=== PATIENT | male | born 1955 | race Caucasian/White ===

== ENCOUNTER 2018-12-23 08:57 | Day surgery (SDC) | payer BC ==
--- NOTE | 2018-12-22 15:06 | RAD REPORT ---
EXAM DESCRIPTION: RAD - Chest Pa And Lat (2 Views) - 12/22/2018 3:00 pm CLINICAL HISTORY: preop Chest pain. COMPARISON: No comparisons FINDINGS: The lungs are clear. The heart is mildly prominent in size. No displaced fractures. IMPRESSION: No acute or concerning finding suspected.
[2018-12-22 15:13] LABS: Absolute Lymphocytes (CBC) 2.3 K/uL (0.7-4.9); Basophils % 0.3 % (0-1.3); Hematocrit 56.4 % (39.6-49.0); Lymphocytes % 16.6 % (15.3-44.8); MPV 8.9 fL (7.6-11.3); RBC Red Blood Cell Count 6.59 M/uL (4.33-5.43)
[2018-12-22 15:28] LABS: Potassium 4.8 mmol/L (3.5-5.1)
[~2018-12-23 08:57] MED LIST: BUPIVACAINE 0.5% PF 10 ML VIAL ONE
--- OUTSIDE RECORDS SUMMARY | 2018-12-23 09:05 | XMS REPORT | Summary of Care ---
:1955 Author Organization [facility] - Health Address [address] [place] [address] Care Team Providers Name Role Phone Doni Potts MD Primary Care Provider Encounter Details Date Type Department Care Team Description 12/18/2018 Orders Only [facility] Doctor Unassigned, No 301 [facility] [place] [address] [address] [place] [address] Allergies No Known Allergiesdocumented as of this encounter (statuses as of 12/18/2018) Medications Medication Sig Dispensed Refills Start Date End Date Status aspirin (ASPIRIN LOW Take 81 mg by 0 Active DOSE) 81 mg EC mouth daily. tabletIndications: Type 2 diabetes mellitus without complication, Essential hypertension Amlodipine-Olmesartan Take 1 tablet by 90 tablet 4 11/10/2017 Active (LORENA) 10-40 mg per mouth daily. tabletIndications: Essential hypertension metformin ER 500 mg 24 TAKE 2 TABLETS BY 360 tablet 4 06/02/2018 Active hr tabletIndications: MOUTH TWICE A DAY Type 2 diabetes mellitus without complication, without long-term current use of insulin JANUVIA 100 mg TAKE 1 TABLET BY 90 tablet 4 11/19/2018 Active tabletIndications: MOUTH EVERY DAY Type 2 diabetes IN THE MORNING mellitus without complication, without long-term current use of insulin ATENOLOL 50 mg TAKE 1 TABLET BY 90 tablet 4 11/19/2018 Active tabletIndications: MOUTH EVERY DAY Essential hypertension IN THE MORNING FARXIGA 5 mg TAKE 1 TABLET BY 90 tablet 3 11/25/2018 Active tabletIndications: MOUTH EVERY DAY Type 2 diabetes mellitus without complication, without long-term current use of insulin documented as of this encounter (statuses as of 12/18/2018) Active Problems Problem Noted Date Type 2 diabetes mellitus without complication 02/06/2015 Essential hypertension 02/06/2015 documented as of this encounter (statuses as of 12/18/2018) Immunizations Name Administration Dates Next Due Influenza Virus Vaccine Quad ID 18-64 YRS 05/22/2015 Influenza Virus Vaccine Quad IM 3+ YRS 04/15/2016 documented as of this encounter Social History Tobacco Use Types Packs/Day Years Used Date Former Smoker Quit: 02/06/2011 Smokeless Tobacco: Never Used Alcohol Use Drinks/Week oz/Week Comments No 0 Standard drinks or equivalent 0.0 Sex Assigned at Date Recorded Not on file Job Start Date Occupation Industry Not on file Not on file Not on file Travel History Travel Start Travel End No recent travel history available. documented as of this encounter Last Filed Vital Signs Not on filedocumented in this encounter Plan of Treatment Date Type Specialty Care Team Description 12/18/2018 Office Visit Family Medicine Doni Potts MD [address] [place] [address] [place] [address] Health Maintenance Due Date Last Done Comments HEPATITIS C (HCV) SCREEN 1955 PNEUMOCOCCAL 0-64 YEARS COMBINED 09/26/1963 SERIES (1 of 1 - PPSV23) EYE EXAM 09/26/1967 DTaP,Tdap,and Td Vaccines (1 - 1976 Tdap) COLONOSCOPY 09/26/2007 Zoster Recombinant Vaccine 09/26/2007 (SHINGRIX) (1 of 2) LUNG CANCER SCREEN: Recommended 2012 for age 55-80 with 30 + pack year history INFLUENZA VACCINE (#1) 2018 04/15/2016 HgA1C 05/02/2019 10/30/2018, 11/10/2017, 11/12/2016, Additional history exists CREATININE (SERUM) 10/31/2019 10/30/2018, 11/10/2017, 11/12/2016, Additional history exists FOOT EXAM 10/31/2019 10/30/2018, 10/30/2018 LDL-C 10/31/2019 10/30/2018, 11/10/2017, 11/12/2016, Additional history exists URINE MICROALBUMIN 10/31/2019 10/30/2018, 11/10/2017, 11/12/2016, Additional history exists documented as of this encounter Procedures Procedure Name Priority Date/Time Associated Diagnosis Comments ASSIGNMENT OF BENEFITS Routine 12/18/2018 2:07 PM CDT documented in this encounter Results Not on filedocumented in this encounter Insurance Payer Benefit Plan Subscriber ID Effective Dates Phone Address Type / Group BCBS OF [facility] [id number] 2013-North [phone] [address] PPO/POS [place] - OUT OF t 7 [id number] [place] [address] documented as of this encounter
--- OUTSIDE RECORDS SUMMARY | 2018-12-23 09:05 | XMS REPORT | Summary of Care ---
:1955 Author Organization [facility] Address [address] [place] [address] Care Team Providers Name Role Phone Doni Potts MD Primary Care Provider Reason for Visit Reason Comments Refill Request Encounter Details Date Type Department Care Team Description 11/25/2018 Refill [facility] Family Medicine Doni Potts MD Refill Request - [address] [address] [place] [phone] Allergies No Known Allergiesdocumented as of this encounter (statuses as of 11/25/2018) Medications Medication Sig Dispensed Refills Start Date End Date Status aspirin (ASPIRIN Take 81 mg by 0 Active LOW DOSE) 81 mg EC mouth daily. tabletIndications: Type 2 diabetes mellitus without complication, Essential hypertension Amlodipine-Olmesart Take 1 tablet 90 tablet 4 11/10/2017 Active an (LORENA) 10-40 mg by mouth per daily. tabletIndications: Essential hypertension metformin ER 500 mg TAKE 2 360 tablet 4 06/02/2018 Active 24 hr TABLETS BY tabletIndications: MOUTH TWICE A Type 2 diabetes DAY mellitus without complication, without long-term current use of insulin JANUVIA 100 mg TAKE 1 TABLET 90 tablet 4 11/19/2018 Active tabletIndications: BY MOUTH Type 2 diabetes EVERY DAY IN mellitus without THE MORNING complication, without long-term current use of insulin ATENOLOL 50 mg TAKE 1 TABLET 90 tablet 4 11/19/2018 Active tabletIndications: BY MOUTH Essential EVERY DAY IN hypertension THE MORNING FARXIGA 5 mg TAKE 1 TABLET 90 tablet 3 11/25/2018 Active tabletIndications: BY MOUTH Type 2 diabetes EVERY DAY mellitus without complication, without long-term current use of insulin dapagliflozin Take 1 tablet 90 tablet 4 11/10/2017 11/25/2018 Discontinued (FARXIGA) 5 mg by mouth tabletIndications: daily. Type 2 diabetes mellitus without complication, without long-term current use of insulin documented as of this encounter (statuses as of 11/25/2018) Active Problems Problem Noted Date Type 2 diabetes mellitus without complication 02/06/2015 Essential hypertension 02/06/2015 documented as of this encounter (statuses as of 11/25/2018) Immunizations Name Administration Dates Next Due Influenza [...] filedocumented in this encounter Plan of Treatment Health Maintenance Due Date Last Done Comments HEPATITIS C (HCV) SCREEN 1955 PNEUMOCOCCAL 0-64 YEARS COMBINED 09/26/1963 SERIES (1 of 1 - PPSV23) EYE EXAM 09/26/1967 DTaP,Tdap,and Td Vaccines (1 - 1976 Tdap) COLONOSCOPY 09/26/2007 Zoster Recombinant Vaccine 09/26/2007 (SHINGRIX) (1 of 2) LUNG CANCER SCREEN: Recommended 2012 for age 55-80 with 30 + pack year history INFLUENZA VACCINE 12/27/2018 04/15/2016, 05/22/2015 HgA1C 05/02/2019 10/30/2018, 11/10/2017, 11/12/2016, Additional history exists CREATININE (SERUM) 10/31/2019 10/30/2018, 11/10/2017, 11/12/2016, Additional history exists FOOT EXAM 10/31/2019 10/30/2018, 10/30/2018 LDL-C 10/31/2019 10/30/2018, 11/10/2017, 11/12/2016, Additional history exists URINE MICROALBUMIN 10/31/2019 10/30/2018, 11/10/2017, 11/12/2016, Additional history exists documented as of this encounter Results Not on filedocumented in this encounter Visit Diagnoses Diagnosis Type 2 diabetes mellitus without complication, without long-term current use of insulin documented in this encounter Insurance Payer Benefit Plan Subscriber ID Effective Dates Phone Address Type / Group BCBS OF [facility] [id number] 2013-North [phone] [address] PPO/POS [place] - OUT OF t 7 [id number] [place] [address] documented as of this encounter
--- OUTSIDE RECORDS SUMMARY | 2018-12-23 09:05 | XMS REPORT | Summary of Care ---
:1955 Author Organization [facility] - Health Address [address] [place] [address] Care Team Providers Name Role Phone Doni Potts MD Primary Care Provider Encounter Details Date Type Department Care Team Description 11/24/2018 Orders Only [facility] Doctor Unassigned, No 301 [facility] [place] [address] [address] [place] [address] Allergies No Known Allergiesdocumented as of this encounter (statuses as of 11/24/2018) Medications Medication Sig Dispensed Refills Start Date End Date Status aspirin (ASPIRIN LOW Take 81 mg by 0 Active DOSE) 81 mg EC mouth daily. tabletIndications: Type 2 diabetes mellitus without complication, Essential hypertension Amlodipine-Olmesartan Take 1 tablet by 90 tablet 4 11/10/2017 Active (LORENA) 10-40 mg per mouth daily. tabletIndications: Essential hypertension dapagliflozin (FARXIGA) Take 1 tablet by 90 tablet 4 11/10/2017 Active 5 mg tabletIndications: mouth daily. Type 2 diabetes mellitus without complication, without long-term current use of insulin metformin ER 500 mg 24 TAKE 2 TABLETS 360 tablet 4 06/02/2018 Active hr tabletIndications: BY MOUTH TWICE A Type 2 diabetes DAY mellitus without complication, without long-term current use of insulin JANUVIA 100 mg TAKE 1 TABLET BY 90 tablet 4 11/19/2018 Active tabletIndications: Type MOUTH EVERY DAY 2 diabetes mellitus IN THE MORNING without complication, without long-term current use of insulin ATENOLOL 50 mg TAKE 1 TABLET BY 90 tablet 4 11/19/2018 Active tabletIndications: MOUTH EVERY DAY Essential hypertension IN THE MORNING documented as of this encounter (statuses as of 11/24/2018) Active Problems Problem Noted Date Type 2 diabetes mellitus without complication 02/06/2015 Essential hypertension 02/06/2015 documented as of this encounter (statuses as of 11/24/2018) Immunizations Name Administration Dates Next Due Influenza [...] Procedure Name Priority Date/Time Associated Diagnosis Comments EXTERNAL PROVIDER Routine 11/24/2018 12:01 AM CDT RECORDS documented in this encounter Results Not on filedocumented in this encounter Insurance Payer Benefit Plan Subscriber ID Effective Dates Phone Address Type / Group BCBS OF [employer] [place] [id number] 2013-North [phone] [address] PPO/POS [place] - OUT OF t 7 [id number] [place] [address] documented as of this encounter
--- OUTSIDE RECORDS SUMMARY | 2018-12-23 09:05 | XMS REPORT | Summary of Care ---
:[address] [facility] Address [address] [place] [address] Care Team Providers Name Role Phone Doni Potts MD Primary Care Provider Reason for Visit Reason Comments Refill Request Encounter Details Date Type Department Care Team Description 11/19/2018 Refill [facility] Family Medicine Doni Potts MD Refill Request - [address] [address] [place] [phone] Allergies No Known Allergiesdocumented as of this encounter (statuses as of 11/19/2018) Medications Medication Sig Dispensed Refills Start Date End Date Status aspirin (ASPIRIN Take 81 mg by 0 Active LOW DOSE) 81 mg EC mouth daily. tabletIndications: Type 2 diabetes mellitus without complication, Essential hypertension Amlodipine-Olmesart Take 1 tablet 90 tablet 4 11/10/2017 Active an (LORENA) 10-40 mg by mouth per daily. tabletIndications: Essential hypertension dapagliflozin Take 1 tablet 90 tablet 4 11/10/2017 Active (FARXIGA) 5 mg by mouth tabletIndications: daily. Type 2 diabetes mellitus without complication, without long-term current use of insulin metformin ER 500 mg TAKE 2 360 [...] Essential EVERY DAY IN hypertension THE MORNING sitaGLIPtin Take 1 tablet 90 tablet 4 11/10/2017 11/19/2018 Discontinued (JANUVIA) 100 mg by mouth tabletIndications: every Type 2 diabetes morning. mellitus without complication, without long-term current use of insulin atenolol 50 mg Take 1 tablet 90 tablet 4 11/10/2017 11/19/2018 Discontinued tabletIndications: by mouth Essential every hypertension morning. documented as of this encounter (statuses as of 11/19/2018) Active Problems Problem Noted Date Type 2 diabetes mellitus without complication 02/06/2015 Essential hypertension 02/06/2015 documented as of this encounter (statuses as of 11/19/2018) Immunizations Name Administration Dates Next Due Influenza [...] complication, without long-term current use of insulin Essential hypertension Unspecified essential hypertension documented in this encounter Insurance Payer Benefit Plan Subscriber ID Effective Dates Phone Address Type / Group BCBS OF [facility] [id number] 2013-North [phone] [address] PPO/POS [place] - OUT OF t 7 [id number] [place] [address] documented as of this encounter
--- OUTSIDE RECORDS SUMMARY | 2018-12-23 09:06 | XMS REPORT ---
:1955 Author Organization [facility] Address [address] [place] [address] [address] [place] [address] Care Team Providers Name Role Phone Unavailable Unavailable Unavailable Problems This patient has no known problems. Allergies, Adverse Reactions, Alerts This patient has no known allergies or adverse reactions. Medications This patient has no known medications.
--- OUTSIDE RECORDS SUMMARY | 2018-12-23 09:06 | XMS REPORT | Summary of Care ---
:1955 Author Organization [facility] Address [address] [place] [address] Care Team Providers Name Role Phone Doni Potts MD Primary Care Provider Reason for Visit Reason Comments Follow-up Forms Encounter Details Date Type Department Care Team Description 12/18/2018 Office Visit [facility] Family Doni Potts Pre-operative Medicine - Clifton Chiang MD clearance (Primary [facility] [address] [facility] [address]x) [place] [phone] Allergies No Known Allergiesdocumented as of this [...] of this encounter Last Filed Vital Signs Vital Sign Reading Time Taken Comments Blood Pressure 137/79 12/18/2018 2:17 PM CDT Pulse 112 12/18/2018 2:17 PM CDT Temperature 36.4 C (97.5 F) 12/18/2018 2:17 PM CDT Respiratory Rate 16 12/18/2018 2:17 PM CDT Oxygen Saturation - - Inhaled Oxygen Concentration - - Weight 119.7 kg (264 lb) 12/18/2018 2:17 PM CDT Height 185.4 cm (6' 1") 12/18/2018 2:17 PM CDT Body Mass Index 34.83 12/18/2018 2:17 PM CDT documented in this encounter Progress Notes Doni Potts MD - 12/18/2018 2:15 PM CDT CC: patient needs clearance for excision of a large cyst on back Dallin is a 63 year old male Glucose control is good; last level was 120; A1c 7.3% No Known Allergies Current Outpatient Medications Medication Sig Dispense Refill FARXIGA 5 mg tablet TAKE 1 TABLET BY MOUTH EVERY DAY 90 tablet 3 ATENOLOL 50 mg tablet TAKE 1 TABLET BY MOUTH EVERY DAY IN THE MORNING 90 tablet 4 JANUVIA 100 mg tablet TAKE 1 TABLET BY MOUTH EVERY DAY IN THE MORNING 90 tablet 4 metformin ER 500 mg 24 hr tablet TAKE 2 TABLETS BY MOUTH TWICE A DAY 360 tablet 4 Amlodipine-Olmesartan (LORENA) 10-40 mg per tablet Take 1 tablet by mouth daily. 90 tablet 4 aspirin (ASPIRIN LOW DOSE) 81 mg EC tablet Take 81 mg by mouth daily. No current facility-administered medications for this visit. Past Medical History: Diagnosis Date Diabetes mellitus Hypertension Past Surgical History: Procedure Laterality Date FOOT DEBRIDEMENT Right 06/2009 Social History Socioeconomic History Marital status: Spouse name: Not on file Number of children: Not on file Years of education: Not on file Highest education level: Not on file Occupational History Not on file Social Needs Financial resource strain: Not on file Food insecurity: Worry: Not on file Inability: Not on file Transportation needs: Medical: Not on file Non-medical: Not on file Tobacco Use Smoking status: Former Smoker Last attempt to quit: 02/06/2011 Years since quittin.8 Smokeless tobacco: Never Used Substance and Sexual Activity Alcohol use: No Alcohol/week: 0.0 oz Drug use: No Sexual activity: Not on file Lifestyle Physical activity: Days per week: Not on file Minutes per session: Not on file Stress: Not on file Relationships Social connections: Talks on phone: Not on file Gets together: Not on file Attends cheondoism service: Not on file Active member of club or organization: Not on file Attends meetings of clubs or organizations: Not on file Relationship status: Not on file Intimate partner violence: Fear of current or ex partner: Not on file Emotionally abused: Not on file Physically abused: Not on file Forced sexual activity: Not on file Other Topics Concern Not on file 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 He appears well- developed and well-nourished. HENT: Head: Normocephalic and atraumatic. Eyes: Conjunctivae are normal. Neck: Normal range of motion. Neck supple. No JVD present. No tracheal deviation present. No thyromegaly present. Cardiovascular: Normal rate, regular rhythm, normal heart sounds and intact distal pulses. Exam reveals no gallop and no friction rub. No murmur heard. Pulmonary/Chest: Effort normal and breath sounds normal. No respiratory distress. He has no wheezes.He has no rales. He exhibits no tenderness. Abdominal: Soft. Bowel sounds are normal. He exhibits no distension and no mass. There is no tenderness. There is no rebound and no guarding. Musculoskeletal: Normal range of motion. He exhibits no edema or tenderness. Lymphadenopathy: He has no cervical adenopathy. Neurological: He is alert and oriented to person, place, and time. Skin: Skin is warm and dry. Large cyst on right upper back/shoulder EKG: poor R wave progression; no acute changes Diagnosis: 1. Pre-operative clearance EKG-12 LEAD ROUTINE patient is medically cleared for planned surgery; please restart his aspirin after surgery. Follow up: prn Patient Care Team: Doni Potts MD as PCP - General ([facility]-FAMILY MEDICINE) Plan of care, desired health behaviors, goals,& medication discussed with patient. Education resources & self management tools provided and reviewed with AVS. Patient/guardian/family verbalized understanding & agrees to plan of care. Barriers to care: None Ability to manage care: Good documented in this encounter Plan of Treatment Name Type Priority Associated Diagnoses Order Schedule EKG-12 LEAD ROUTINE HEART STATION Routine Pre-operative Ordered: 12/18/2018 clearance Health Maintenance Due Date Last Done Comments [...] filedocumented in this encounter Visit Diagnoses Diagnosis Pre-operative clearance - Primary Preoperative examination, unspecified documented in this encounter Insurance Payer Benefit Plan Subscriber ID Effective Dates Phone Address Type / Group BCBS OF [facility] [id number] 2013-North [phone] [address] PPO/POS [place] - OUT OF t 7 [id number] [place] [address] documented as of this encounter
--- OUTSIDE RECORDS SUMMARY | 2018-12-23 09:06 | XMS REPORT | Summary of Care ---
:1955 Author Organization [facility] Address [address] [place] [address] Care Team Providers Name Role Phone Doni Potts MD Primary Care Provider Reason for Visit Reason Comments Follow-up Forms Encounter Details Date Type Department Care Team Description 12/18/2018 Office Visit [facility] Family Doni Potts Pre-operative Medicine - Clifton Chiang MD clearance (Primary [facility] 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
--- OUTSIDE RECORDS SUMMARY | 2018-12-23 09:06 | XMS REPORT | Summary of Care ---
:1955 Author Organization [facility] Address [address] [place] [address] Care Team Providers Name Role Phone Doni Potts MD Primary Care Provider Encounter Details Date Type Department Care Team Description 12/18/2018 Letter (Out) [facility] Family Doni Potts Medicine - Clifton COLÓN [address] [place] [address] [place] [address] [place] [phone] Allergies No Known Allergiesdocumented as of this [...] Phone Address Type / Group BCBS OF [facility] [id number] 2013-North [phone] [address] PPO/POS [place] - OUT OF t 7 [id number] [place] [address] documented as of this encounter
[2018-12-23] MEDS ORDERED: FENTANYL CITR 100 MCG/2 ML ONE (09:10)
[2018-12-23] MEDS ORDERED: PROPOFOL 200 MG/20 ML VIAL IV ONE (09:10)
[2018-12-23] MEDS ORDERED: MIDAZOLAM HCL 2 MG/2 ML INJ ONE (09:10)
[2018-12-23] MEDS ORDERED: ONDANSETRON 4 MG/2 ML VIAL ONE (09:11)
[2018-12-23] MEDS ORDERED: LIDOCAINE 2% MPF 5 ML VIAL ONE (09:11)
[2018-12-23] MEDS ORDERED: NA CHLORIDE 0.9% 1,000 ML ONE (09:14)
[2018-12-23] MEDS ORDERED: CEFAZOLIN/SWI 1gm 1 GM/10 ML SYR ONE (09:25)
--- NOTE | 2018-12-23 10:19 | P.BOP ---
Preoperative diagnosis: infected back mass with abscess Postoperative diagnosis: same Primary procedure: Incision and drainage of back complex abscess Secondary procedure: Excisional biopsy of infected back mass [id number] Pattern Lease Inspector: Adia Powell) Estimated blood loss: <10cc Specimen: mass amd pus culture Findings: mass and complex abscess Anesthesia: General Complications: None Transferred to: Recovery Room Condition: Good
--- NOTE | 2018-12-23 22:26 | DS ---
Date of Discharge: 12/23/2018 Diagnosis: Infected back mass with abscess. Procedure: Incision and drainage of back complex abscess with excisional biopsy of infected back mas s down to fascia of the muscle. Disposition: Home. Activity: As tolerated. No heavy lifting. Followup: Follow up in my office in 1 week. Call for appointment at [phone]. Patient most likely will need wet-to-dry dressing daily and was requesting home health agency. Medications: We will give the patient Bactrim, Tylenol No. 3, and normal saline. STEFANI/SHONDA Voice ID: [id number] Report ID: [id number]
--- NOTE | 2018-12-23 22:26 | OP ---
Date of Procedure: 12/23/2018 Surgeon: Michael Albert MD [employer] Grade Mathematics Teacher: Adia Bennett. Preoperative Diagnosis: Infected back mass with abscess. Postoperative Diagnosis: Infected back mass with abscess. Procedure: Incision and drainage of complicated back abscess with excisional biopsy of infected back mass about 12 x 9 x 2 cm. Estimated Blood Loss: Less than 10 cc. Specimen: Mass and pus culture. Finding: Mass with a complex abscess deep to it with multiple loculations. Cultures were done. Anesthesia: General plus local. Indications: This is a case of a 63-year-old patient, who comes to us with a cellulitis on the back and abscess with a back mass in the middle of it, it was draining purulent discharge already. Patien t has a history of diabetes. It is getting worse, so he was advised for excision of the mass with dr larson of an abscess with benefits, alternatives, and risks including, but not limited to, infection, bleeding, damage to adjacent structures, anesthesia complication, recurrence, VA, and even . H e also understands this may not relieve any symptoms. He might need more than one surgical intervent ion. He understands also he may require wound care, signed a consent. Description Of Procedure: Patient was brought to the operating room, placed in supine position. Ane sthesia was done without complication. Patient was placed in lateral decubitus position with proper protection. The area of concern was previously marked by me and the patient in the holding room. Th e area was prepped and draped in usual sterile fashion. Time-out was called. Incision was made. Pu s was obtained immediately. We noticed there was a complex large abscess with a mass in the middle, so we proceeded to make a wide excision in that area to remove the whole wall of this mass. Abscess was encountered deep to the mass, so had to be also drained with multiple loculations. Mass was comp letely excised. Cultures were obtained. Hemostasis was obtained. This goes all the way down to mus juan with fascia. The muscle was removed with the mass. Muscle was exposed, but did not seem to be p enetrating the muscle. Patient tolerated the procedure well. The area was packed after hemostasis a nd after local anesthetic. Patient was sent to Recovery in stable condition. STEFANI/SHONDA Voice ID: [id number] Report ID: [id number]
== END 2018-12-23 11:30 | disposition home health service (06) ==
LOC: OR 08:57
PROVIDERS: ATTEND Surgery
PROC: 0JB70ZZ Excision of Back Subcutaneous Tissue and Fascia, Open Approach (ICD-10-PCS; 2018-12-23)
PROC: 0J970ZZ Drainage of Back Subcutaneous Tissue and Fascia, Open Approach (ICD-10-PCS; principal; 2018-12-23 11:00)
DX: R22.2 Localized swelling, mass and lump, trunk (principal); L02.212 Cutaneous abscess of back [any part, except buttock and flank]; E11.9 Type 2 diabetes mellitus without complications; I10 Essential (primary) hypertension; Z79.82 Long term (current) use of aspirin; Z91.048 Other nonmedicinal substance allergy status; Z83.3 Family history of diabetes mellitus; Z82.49 Family history of ischemic heart disease and other diseases of the circulatory system
CPT/HCPCS: 87070; 85025; 80048; 36415; 87205 ×2; 88312; 82962 ×2; 88304; 87075; 71046; 10061; 11406; J2704; J2250; J3010; J0690; J7030; J2405; 88305

== ENCOUNTER 2019-01-31 12:14 | Emergency (ER) | payer BC ==
[2019-01-31] MEDS ORDERED: ONDANSETRON 4 MG/2 ML VIAL ONE (12:39)
[2019-01-31] MEDS ORDERED: ASPIRIN 81 MG CHEWABLE TABLET ONE (12:39)
[2019-01-31] MEDS ORDERED: NITROGLYCERIN 0.4 MG/TAB SL ONE (12:39)
[2019-01-31] MEDS ORDERED: FENTANYL CITR 100 MCG/2 ML ONE (12:39)
[2019-01-31 13:28] LABS: Absolute Lymphocytes (CBC) 1.9 K/uL (0.7-4.9); Basophils % 0.4 % (0-1.3); Hematocrit 53.7 % (39.6-49.0); Lymphocytes % 12.5 % (15.3-44.8); MPV 8.5 fL (7.6-11.3); RBC Red Blood Cell Count 6.32 M/uL (4.33-5.43)
[2019-01-31 13:32] LABS: Protime INR 1.03
[2019-01-31 13:47] LABS: ALT/SGPT 28 U/L (12-78); AST/SGOT 30 U/L (15-37); Albumin 3.4 g/dL (3.4-5.0); Alkaline Phosphatase 125 U/L (45-117); BUN Blood Urea Nitrogen 17 mg/dL (7-18); Bicarbonate 29 mmol/L (21-32); Bilirubin Direct < 0.1 mg/dL (0-0.2); Bilirubin Total 0.6 mg/dL (0.2-1.0); Glucose Level 373 mg/dL (74-106); Magnesium 1.5 mg/dL (1.8-2.4); NT PRO-BNP 3524 pg/mL (<125); Potassium 4.7 mmol/L (3.5-5.1); Protein, Total 7.4 g/dL (6.4-8.2); Sodium Level 133 mmol/L (136-145)
[2019-01-31 13:48] LABS: Troponin (Emerg Dept Use Only) 0.67 ng/mL (0.0-0.045)
--- NOTE | 2019-01-31 14:26 | RAD REPORT ---
EXAM DESCRIPTION: CT - Chest For Pe Angio - 01/31/2019 2:12 pm CLINICAL HISTORY: Chest pain;Dyspnea COMPARISON: Chest Single View dated 01/31/2019 TECHNIQUE: Dynamically enhanced 3 mm thick images of the chest were obtained during administration o f approximately 150mL Isovue 370 IV contrast. Coronal and oblique MIP reconstruction images were gene rated and reviewed. Exam utilizes a protocol to evaluate the pulmonary arterial tree. All CT scans are performed using dose optimization technique as appropriate and may include automated exposure control or mA/KV adjustment according to patient size. FINDINGS: No pulmonary emboli are identified. The aorta as imaged shows no acute or suspicious finding. No pericardial thickening or effusion. No infiltrate or mass in the lung parenchyma. No pleural effusion or pleural thickening. No mediastinal or hilar suspicious masses. No chest wall masses or abnormal axillary lymphadenopathy. Limited upper abdomen imaging shows fatty infiltration of a partially visualized liver. IMPRESSION: No pulmonary emboli identified. No other significant or suspicious findings. Partially imaged liver shows fatty infiltration.
[2019-01-31] MEDS ORDERED: Magnesium Sulfate 2gm IVPB 2 G/50 ML BAG IV ONE (14:31)
[2019-01-31] MEDS ORDERED: ENOXAPARIN 100 MG/ML SYR SQ ONE (14:31)
[2019-01-31] MEDS ORDERED: NITROGLYCERIN/D5W 50 MG/250 ML BTL IV ONE (14:31)
[2019-01-31] MEDS ORDERED: HEPARIN 5000 UNIT/ML 1 ML VIAL ONE (14:43)
[2019-01-31] MEDS ORDERED: TENECTEPLASE 50 MG/10 ML VIAL IV ONE (14:43)
[2019-01-31] MEDS ORDERED: HEPARIN/D5W 25,000 UNIT/500 ML BAG IV ONE (14:44)
[2019-01-31] MEDS ORDERED: CLOPIDOGREL 75 MG TABLET ONE (14:56)
--- NOTE | 2019-01-31 15:33 | EDPHYS ---
Physician Documentation [facility] Name: Dallin Rodriguez Age: 63 yrs Sex: Male : 1955 Arrival Date: 01/31/2019 Time: 12:15 Bed 3 Private MD: ED Physician Jeffrey Truong HPI: 01/31 12:39 This 63 yrs old Male presents to ER via Ambulatory with complaints of Chest jr8 Pain. 12:39 The patient or guardian reports chest pain that is located primarily in the substernal jr8 area. Onset: 3 day(s) ago. The pain radiates to Associated signs and symptoms: Pertinent negatives: abdominal pain, diaphoresis, dizziness, headache, lightheadedness, nausea, near syncope, shortness of breath. The chest pain is described as burning. Duration: The patient or guardian reports a single episode. Modifying factors: The symptoms are alleviated by nothing. the symptoms are aggravated by nothing. Severity of pain: At its worst the pain was moderate in the emergency department the pain is unchanged. The patient has not experienced similar symptoms in the past. Pt reports onset of burning chest pain substernal and radiating to back, left arm, left shoulder. 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 Historical: - Allergies: 12:42 No Known Allergies; aj1 - PMHx: 12:42 Hypertension; Diabetes - NIDDM; wound vac to back after cyst removal; aj1 - Immunization history:: Flu vaccine is not up to date. - Social history:: Smoking status: Patient/guardian denies using tobacco. - Ebola Screening: : Patient denies travel to an Ebola-affected area in the 21 days before illness onset. ROS: 12:39 Constitutional: Negative for fever, chills, and weight loss, Eyes: Negative for injury, jr8 pain, redness, and discharge, ENT: Negative for injury, pain, and discharge, Neck: Negative for injury, pain, and swelling, Abdomen/GI: Negative for abdominal pain, nausea, vomiting, diarrhea, and constipation, Back: Negative for injury and pain, MS/Extremity: Negative for injury and deformity, Neuro: Negative for headache, weakness, numbness, tingling, and seizure. 12:39 Cardiovascular: Positive for chest pain. 12:39 Respiratory: Negative for cough, shortness of breath. Exam: 12:42 Constitutional: This is a well developed, well nourished patient who is awake, alert, jr8 and in no acute distress. Head/Face: Normocephalic, atraumatic. Eyes: Pupils equal round and reactive to light, extra-ocular motions intact. Lids and lashes normal. Conjunctiva and sclera are non-icteric and not injected. Cornea within normal limits. Periorbital areas with no swelling, redness, or edema. ENT: Nares patent. No nasal discharge, no septal abnormalities noted. Tympanic membranes are normal and external auditory canals are clear. Oropharynx with no redness, swelling, or masses, exudates, or evidence of obstruction, uvula midline. Mucous membranes moist. Neck: Trachea midline, no thyromegaly or masses palpated, and no cervical lymphadenopathy. Supple, full range of motion without nuchal rigidity, or vertebral point tenderness. No Meningismus. Chest/axilla: Normal chest wall appearance and motion. Nontender with no deformity. No lesions are appreciated. Cardiovascular: Regular rate and rhythm with a normal S1 and S2. No gallops, murmurs, or rubs. Normal PMI, no JVD. No pulse deficits. Respiratory: Lungs have equal breath sounds bilaterally, clear to auscultation and percussion. No rales, rhonchi or wheezes noted. No increased work of breathing, no retractions or nasal flaring. Abdomen/GI: Soft, non-tender, with normal bowel sounds. No distension or tympany. No guarding or rebound. No evidence of tenderness throughout. MS/ Extremity: Pulses equal, no cyanosis. Neurovascular intact. Full, normal range of motion. Neuro: Awake and alert, GCS 15, oriented to person, place, time, and situation. Cranial nerves II-XII grossly intact. Motor strength 5/5 in all extremities. Sensory grossly intact. Cerebellar exam normal. Normal gait. Vital Signs: 12:18 BP 173 / 129; Pulse 126; Resp 24; Temp 97.8; Pulse Ox 94% on R/A; aj1 12:45 Weight 117.93 kg; Height 6 ft. 1 in. (185.42 cm); ms 12:49 BP 157 / 108; Pulse 119; Pulse Ox 93% on R/A; aa5 12:53 Pulse Ox 87% on R/A; aa5 12:54 BP 146 / 101; Pulse 127; Resp 20 S; Pulse Ox 96% on 3 lpm NC; aa5 12:59 BP 148 / 102; Pulse 123; Resp 18 S; Pulse Ox 93% on 4 lpm NC; aa5 13:25 BP 127 / 93; Pulse 117; Resp 18 S; Pulse Ox 92% on 3 lpm NC; aa5 13:40 BP 135 / 101; Pulse 114; Resp 20 S; Pulse Ox 95% on 3 lpm NC; aa5 14:28 BP 164 / 119; Pulse 119; Resp 20; Pulse Ox 97% on 2 lpm NC; ae4 14:40 BP 152 / 112; Pulse 129; Resp 18 S; Pulse Ox 98% on 3 lpm NC; aa5 14:48 BP 172 / 120; Pulse 124; Resp 18 S; Pulse Ox 95% on 3 lpm NC; aa5 14:54 BP 176 / 129; Pulse 124; Resp 18 S; Pulse Ox 95% on 3 lpm NC; aa5 15:02 BP 168 / 116; Pulse 128; Resp 20 S; Pulse Ox 94% on 3 lpm NC; aa5 15:07 BP 161 / 109; Pulse 128; Resp 18 S; Pulse Ox 94% on 3 lpm NC; aa5 12:45 Body Mass Index 34.30 (117.93 kg, 185.42 cm) ms 12:53 Pt denies SOB at this time. aa5 MDM: 12:23 Patient medically screened. jr8 15:01 HEART Score: History: Highly Suspicious (2), ECG: Non specific repolarization jr8 disturbance / LBTB / PM (1), Age: > 45 and < 65 years (1), Risk Factors: 1 or 2 risk factors (1), [Hypertension] [DM] Troponin: > 1 and < 3 x normal limit (1). The patient was given aspirin in the Emergency Department. Data reviewed: vital signs, nurses notes, lab test result(s), EKG, radiologic studies, CT scan, plain films. Data interpreted: Pulse oximetry: on 2L(s) per nasal canula, is 100 %. Interpretation: normal. Counseling: I had a detailed discussion with the patient and/or guardian regarding: the historical points, exam findings, and any diagnostic results supporting the discharge/admit diagnosis, lab results, radiology results, the need to transfer to another facility, [facility] does not immediately have the required specialist. ED course: Patient has had increased dynamic ECG changes with continued chest pain. Elevated troponin. Concern for evolving [place] consulted as we do not have lab systems analyst on weekend. Dr. Aparicio consulted and agreed. Transferring patient to CCU there. . 01/31 12:36 Order name: Basic Metabolic Panel; Complete Time: 13:53 8 01/31 12:36 Order name: CBC with Diff; Complete Time: 13:33 8 01/31 12:36 Order name: LFT's; Complete Time: 13:53 jr8 01/31 12:36 Order name: Magnesium; Complete Time: 13:53 8 01/31 12:36 Order name: NT PRO-BNP; Complete Time: 13:53 8 01/31 12:36 Order name: PT-INR; Complete Time: 13:41 8 01/31 12:36 Order name: Troponin (emerg Dept Use Only); Complete Time: 13:53 8 01/31 12:36 Order name: XRAY Chest (1 view) 8 01/31 13:44 Order name: CT Chest For PE Angio; Complete Time: 14:32 8 01/31 12:36 Order name: EKG; Complete Time: 12:37 01/31 12:36 Order name: Cardiac monitoring; Complete Time: 12:37 01/31 12:36 Order name: EKG - Nurse/Tech; Complete Time: 12:37 8 01/31 12:36 Order name: IV Saline Lock; Complete Time: 12:37 8 01/31 12:36 Order name: Labs collected and sent; Complete Time: 12:37 8 01/31 12:36 Order name: O2 Per Protocol; Complete Time: 12:37 8 01/31 12:36 Order name: O2 Sat Monitoring; Complete Time: 12:37 8 Administered Medications: 12:40 Drug: Aspirin Chewable Tablet 324 mg Route: PO; aa5 13:54 Follow up: Response: No adverse reaction aa5 12:41 Drug: Zofran 4 mg Route: IVP; Site: left antecubital; aa5 12:50 Follow up: Response: No adverse reaction aa5 12:45 Drug: Nitroglycerin 0.4 mg Route: Sublingual; aa5 12:50 Drug: Nitroglycerin 0.4 mg Route: Sublingual; aa5 12:55 Drug: Nitroglycerin 0.4 mg Route: Sublingual; aa5 13:00 Follow up: Response: Marked relief of symptoms; Marked relief of symptoms. Pt reported aa5 pain decreased to 4/10 after 1st Nitro, pain decreased to 3/10 after 2nd Nitro, and pain decreased to 2/10 on a pain scale after 3rd Nitro 13:15 Drug: fentaNYL (PF) 25 mcg Route: IVP; Site: right antecubital; aa5 13:20 Follow up: Response: No adverse reaction aa5 13:53 Drug: fentaNYL (PF) 25 mcg Route: IVP; Site: right antecubital; aa5 14:00 Follow up: Response: No adverse reaction aa5 14:38 Drug: Nitro Drip - (Nitroglycerin 50 mg, D5W 250 ml) Route: IV; Rate: 5 mcg/min; Site: ae4 right antecubital; 15:03 Follow up: Infusion started at 5mcg/min at 1438, increased to 10mcg/min at 1443, aa5 increased to 20mcg/min at 1448, increased to 30mcg/min at 1453, increased to 40mcg/min at 1458, and increased to 50mcg/min at 1503. 15:10 Follow up: IV Status: Infusion continued upon transfer aa5 14:42 CANCELLED (Physician Discretion): Lovenox 1 mg/kg Sub-Q once aa5 14:48 Drug: Tenecteplase 50 mg {Co-Signature: ae4 (Massimo Babin RN).} Route: IV; Rate: aa5 calculated rate; Site: right hand; 14:49 Drug: Heparin ([place]-Bolus with thrombolytic) - HEParin 60 units/kg {Co-Signature: ae4 aa5 (Massimo Babin RN).} {Note: adminstered 4000units .} Route: IVP; Site: right hand; 15:00 Follow up: Response: No adverse reaction aa5 14:50 Drug: Heparin ([place] Drip) 12 units/kg/hr - (HEParin 86330 units, D5W 500 ml) aa5 {Co-Signature: ae4 (Massimo Babin RN).} {Note: Infusing at 1000units/hr.} Route: IV; Rate: calculated rate; Site: right hand; 15:10 Follow up: IV Status: Infusion continued upon transfer [facility] 14:55 Drug: PlaVIX 75 mg Route: PO; [facility] 15:10 Follow up: Response: No adverse reaction [facility] 15:00 Drug: Magnesium Sulfate 2 grams Route: IVPB; Infused Over: 2 hrs; Site: left forearm; [facility] 15:10 Follow up: IV Status: Infusion continued upon transfer [facility] Disposition: 15:01 Critical Care:. jr8 17:31 Co-signature as Attending Physician, Jeffrey Truong MD. rn Disposition: 01/31/19 15:[address] [facility]. Diagnosis are Non-ST elevation (NSTEMI) myocardial infarction, Unstable angina. - Reason for transfer: Higher level of care. - Accepting physician is Dr. Aparicio . - Condition is Fair. - Problem is new. - Symptoms have improved. Critical care time excluding procedures: 15:01 Critical care time: Bedside Care: 20 minutes, Consultation: 10 minutes, Family jr8 Intervention: 10 minutes. Total time: 40 minutes Signatures: Dispatcher [employer] EDMonique Chaudhary RN RN aj1 Frances Mathis ms, Roman, MD MD rn Calderon, Audri RN RN aa5 Maximino Cazares PA PA 8 Massimo Babin RN RN ae4 Massimo Babin RN ae4 Corrections: (The following items were deleted from the chart) 14:42 13:55 Lovenox 1 mg/kg Sub-Q once ordered. [place] [id number] 14:42 14:42 Lovenox 1 mg/kg Sub-Q once ordered. [place] [id number] 15:32 15:05 01/31/2019 15:[address] [facility]. Diagnosis is ms Non-ST elevation (NSTEMI) myocardial infarction; Unstable angina. Reason for transfer: Higher level of care. Accepting physician is Dr. Aparicio . Condition is Fair. Problem is new. Symptoms have improved. jr8
--- NOTE | 2019-01-31 15:33 | ER ---
Nurse's Notes [facility] Name: Dallin Rodriguez Age: 63 yrs Sex: Male : 1955 Arrival Date: 01/31/2019 Time: 12:15 Bed 3 Private MD: Diagnosis: Non-ST elevation (NSTEMI) myocardial infarction;Unstable angina Presentation: 01/31 12:18 Presenting complaint: Patient states: Left sided chest pain that radiates to the back aj1 and left arm for the past 3 days. Patient also reports nausea and vomiting, shortness of breath. Transition of care: patient was not received from another setting of care. Onset of symptoms was 2018. 12:18 Method Of Arrival: Ambulatory aj1 12:18 Acuity: ROSENDO 2 aj1 12:18 Risk Assessment: Do you want to hurt yourself or someone else? Patient reports no aj1 desire to harm self or others. Initial Sepsis Screen: Does the patient meet any 2 criteria? RR > 20 per min. HR > 90 bpm. Yes Does the patient have a suspected source of infection? No. Patient's initial sepsis screen is negative. Care prior to arrival: None. Triage Assessment: 12:18 General: Appears uncomfortable, Behavior is cooperative, anxious. aj1 12:18 Pain: Complains of pain in chest Pain radiates to back and left arm. Neuro: Level of aj1 Consciousness is awake, alert, obeys commands. Cardiovascular: Reports chest pain, nausea, shortness of breath. Respiratory: Airway is patent Respiratory effort is even, unlabored, Respiratory pattern is regular, symmetrical. Derm: Skin is clammy, Skin is pale. Historical: - Allergies: 12:42 No Known Allergies; aj1 - PMHx: 12:42 Hypertension; Diabetes - NIDDM; wound vac to back after cyst removal; aj1 - Immunization history:: Flu vaccine is not up to date. - Social history:: Smoking status: Patient/guardian denies using tobacco. - Ebola Screening: : Patient denies travel to an Ebola-affected area in the 21 days before illness onset. Screenin:30 Abuse screen: Denies threats or abuse. Nutritional screening: No deficits noted. aa5 Tuberculosis screening: No symptoms or risk factors identified. Fall Risk None identified. Assessment: 12:30 General: Appears uncomfortable, Behavior is calm, cooperative. Pain: Complains of pain aa5 in anterior aspect of left upper chest Pain radiates to left arm and left shoulder Pain currently is 10 out of 10 on a pain scale. Quality of pain is described as pressure, sharp, Pain began 3 days ago Is continuous. Neuro: Level of Consciousness is awake, alert, obeys commands, Oriented to person, place, time, situation. Cardiovascular: Heart tones S1 S2 present Rhythm is sinus tachycardia. Respiratory: Reports shortness of breath Airway is patent Respiratory effort is even, unlabored, Respiratory pattern is regular, symmetrical, Breath sounds are clear bilaterally. GI: Abdomen is obese, Bowel sounds present X 4 quads. Reports nausea, vomiting. : No signs and/or symptoms were reported regarding the genitourinary system. EENT: No signs and/or symptoms were reported regarding the EENT system. Derm: Skin is pink, warm \T\ dry. Wound vac noted to right scapular area, pt reports cyst was removed on December 30. Musculoskeletal: Range of motion: intact in all extremities. 12:49 Reassessment: Patient is alert, oriented x 3, equal unlabored respirations, skin aa5 warm/dry/pink. Pt reports pain has decreased to 4/10 after 1st nitro. . 13:15 Reassessment: Patient is alert, oriented x 3, equal unlabored respirations, skin aa5 warm/dry/pink. Pain: Pain currently is 4 out of 10 on a pain scale. 13:48 Reassessment: Received call from Graham tello to take critical lab 0.67 troponin , ae4 provider notified. 13:53 Reassessment: Patient is alert, oriented x 3, equal unlabored respirations, skin aa5 warm/dry/pink. General: Appears uncomfortable. 13:53 Pain: Pain currently is 5 out of 10 on a pain scale. aa5 14:23 Reassessment: Repeat EKG completed . aa5 14:23 Reassessment: PA at bedside . aa5 14:23 Reassessment: Patient is alert, oriented x 3, equal unlabored respirations, skin aa5 warm/dry/pink. Patient states symptoms have not improved. General: Appears uncomfortable. 14:53 Reassessment: Report called to Cathie MENA at [facility]. hb 14:53 Reassessment: Patient is alert, oriented x 3, equal unlabored respirations, skin aa5 warm/dry/pink. Patient states feeling better. 14:53 Pain: Pain currently is 4 out of 10 on a pain scale. aa5 14:58 Reassessment: Patient is alert, oriented x 3, equal unlabored respirations, skin aa5 warm/dry/pink. Pain: Pain currently is 3 out of 10 on a pain scale. 15:10 Reassessment: Patient is alert, oriented x 3, equal unlabored respirations, skin aa5 warm/dry/pink. Vital Signs: 12:18 BP 173 / 129; Pulse 126; Resp 24; Temp 97.8; Pulse Ox 94% on R/A; aj1 12:45 Weight 117.93 kg; Height 6 ft. 1 in. (185.42 cm); ms 12:49 BP 157 / 108; Pulse 119; Pulse Ox 93% on R/A; aa5 12:53 Pulse Ox 87% on R/A; aa5 12:54 BP 146 / 101; Pulse 127; Resp 20 S; Pulse Ox 96% on 3 lpm NC; aa5 12:59 BP 148 / 102; Pulse 123; Resp 18 S; Pulse Ox 93% on 4 lpm NC; aa5 13:25 BP 127 / 93; Pulse 117; Resp 18 S; Pulse Ox 92% on 3 lpm NC; aa5 13:40 BP 135 / 101; Pulse 114; Resp 20 S; Pulse Ox 95% on 3 lpm NC; aa5 14:28 BP 164 / 119; Pulse 119; Resp 20; Pulse Ox 97% on 2 lpm NC; ae4 14:40 BP 152 / 112; Pulse 129; Resp 18 S; Pulse Ox 98% on 3 lpm NC; aa5 14:48 BP 172 / 120; Pulse 124; Resp 18 S; Pulse Ox 95% on 3 lpm NC; aa5 14:54 BP 176 / 129; Pulse 124; Resp 18 S; Pulse Ox 95% on 3 lpm NC; aa5 15:02 BP 168 / 116; Pulse 128; Resp 20 S; Pulse Ox 94% on 3 lpm NC; aa5 15:07 BP 161 / 109; Pulse 128; Resp 18 S; Pulse Ox 94% on 3 lpm NC; aa5 12:45 Body Mass Index 34.30 (117.93 kg, 185.42 cm) ms 12:53 Pt denies SOB at this time. aa5 ED Course: 12:15 Patient arrived in ED. as 12:18 Arm band placed on Patient placed in an exam room. aj1 12:20 Patient has correct armband on for positive identification. Placed in gown. Bed in low aa5 position. Call light in reach. Side rails up X2. youth nutritional monitor on. Pulse ox on. NIBP on. 12:22 Triage completed. aj1 12:23 Maximino Cazares PA is PHCP. jr8 12:23 Jeffrey Truong MD is Attending Physician. jr8 12:25 Shadia Dickson, RAJESH is Primary Nurse. aa5 12:35 Inserted saline lock: 18 gauge in left antecubital area, using aseptic technique. Blood aj1 collected. 12:35 Initial lab(s) drawn, by ED staff. aa5 12:35 No provider procedures requiring assistance completed. Patient maintains SpO2 aa5 saturation greater than 95% on room air. 13:00 intact, bleeding controlled, Pressure dressing applied, 18 G to L AC d/c, swelling aa5 noted to IV site and pt c/o pain to site. 13:03 XRAY Chest (1 view) In Process Unspecified. EDMS 13:15 Lab(s) recollected, by me, sent to lab. aa5 13:15 Inserted saline lock: 20 gauge in right antecubital area, using aseptic technique. aa5 14:12 CT completed. Patient tolerated procedure well. Patient moved back from CT. mw3 14:12 CT Chest For PE Angio In Process Unspecified. EDMS 14:36 \T\1430 initiated transfer through [facility] line [phone]. Spoke with Kristine Watts RN. gm 14:40 Inserted saline lock: 18 gauge in right hand, using aseptic technique. aa5 14:46 \T\1433 doc to doc was done with WYATT Stanton and Dr gaitan. gm 14:47 \T\1440 administrative approval was given by bg newsome RN. gm 14:47 faxed MOT and facesheet to [phone]. gm 14:53 faxed MOT and facesheet to [employer] [phone]. gm 14:58 patient flying to [facility]. going to CCU#2 bed 12. gm 14:59 called [facility] [employer] \T\1443 and spoke with Magda. life flight will arrive gm in 22 min. 15:00 Inserted saline lock: 18 gauge in left forearm, using aseptic technique. aa5 15:10 One-on-one care X 45 minutes. aa5 Administered Medications: 12:40 Drug: Aspirin Chewable Tablet 324 mg Route: PO; aa5 13:54 Follow up: Response: No adverse reaction aa5 12:41 Drug: Zofran 4 mg Route: IVP; Site: left antecubital; aa5 12:50 Follow up: Response: No adverse reaction aa5 12:45 Drug: Nitroglycerin 0.4 mg Route: Sublingual; aa5 12:50 Drug: Nitroglycerin 0.4 mg Route: Sublingual; aa5 12:55 Drug: Nitroglycerin 0.4 mg Route: Sublingual; aa5 13:00 Follow up: Response: Marked relief of symptoms; Marked relief of symptoms. Pt reported aa5 pain decreased to 4/10 after 1st Nitro, pain decreased to 3/10 after 2nd Nitro, and pain decreased to 2/10 on a pain scale after 3rd Nitro 13:15 Drug: fentaNYL (PF) 25 mcg Route: IVP; Site: right antecubital; aa5 13:20 Follow up: Response: No adverse reaction aa5 13:53 Drug: fentaNYL (PF) 25 mcg Route: IVP; Site: right antecubital; aa5 14:00 Follow up: Response: No adverse reaction aa5 14:38 Drug: Nitro Drip - (Nitroglycerin 50 mg, D5W 250 ml) Route: IV; Rate: 5 mcg/min; Site: ae4 right antecubital; 15:03 Follow up: Infusion started at 5mcg/min at 1438, increased to 10mcg/min at 1443, aa5 increased to 20mcg/min at 1448, increased to 30mcg/min at 1453, increased to 40mcg/min at 1458, and increased to 50mcg/min at 1503. 15:10 Follow up: IV Status: Infusion continued upon transfer aa5 14:42 CANCELLED (Physician Discretion): Lovenox 1 mg/kg Sub-Q once aa5 14:48 Drug: Tenecteplase 50 mg {Co-Signature: ae4 (Massimo Olaf RN).} Route: IV; Rate: aa5 calculated rate; Site: right hand; 14:49 Drug: Heparin (AK-Bolus with thrombolytic) - HEParin 60 units/kg {Co-Signature: ae4 aa5 (Massimo Babin RN).} {Note: adminstered 4000units .} Route: IVP; Site: right hand; 15:00 Follow up: Response: No adverse reaction aa5 14:50 Drug: Heparin (AK Drip) 12 units/kg/hr - (HEParin 65473 units, D5W 500 ml) aa5 {Co-Signature: ae4 (Massimo Babin RN).} {Note: Infusing at 1000units/hr.} Route: IV; Rate: calculated rate; Site: right hand; 15:10 Follow up: IV Status: Infusion continued upon transfer aa5 14:55 Drug: PlaVIX 75 mg Route: PO; aa5 15:10 Follow up: Response: No adverse reaction aa5 15:00 Drug: Magnesium Sulfate 2 grams Route: IVPB; Infused Over: 2 hrs; Site: left forearm; aa5 15:10 Follow up: IV Status: Infusion continued upon transfer aa5 Intake: Outcome: 15:05 ER care complete, transfer ordered by . rust 15:10 Transferred by helicopter to [facility], Transfer form completed. aa5 X-rays sent w/ patient. Note: Report given to life flight 15:10 Condition: stable aa5 15:10 Instructed on the need for transfer, Demonstrated understanding of instructions. 15:32 Patient left the ED. ms Signatures: Dispatcher [employer] EDMS Mnoique Day, RAJESH RN aj1 Mei Albert Maria ms Calderon, Audri, RN RN aa5 Maximino Cazares PA PA jr8 Nithya Oscar RN RN hb Willis, Michelle mw3 Lashon Alejandra gm, Andrea, RN RN ae4 Massimo Babin RN ae4 Corrections: (The following items were deleted from the chart) 19:16 15:10 BP 161 / 109; Pulse 128bpm; Resp 18bpm; Spontaneous; Pulse Ox 94% 3 lpm Nasal aa5 Cannula; aa5 19:31 12:35 Initial lab(s) drawn, by me, First set of blood cultures drawn by me, aj1 aa5
[2019-01-31 16:07] VITALS: TEMP 97.8
--- NOTE | 2019-01-31 16:14 | RAD REPORT ---
EXAM DESCRIPTION: RAD - Chest Single View - 01/31/2019 1:04 pm CLINICAL HISTORY: Left-sided chest pain COMPARISON: December 22, 2018 TECHNIQUE: AP portable chest image was obtained 1259 hours . FINDINGS: Lung volumes are low. This accentuates heart, vasculature and lung markings. Early edema o r infiltrate could be masked. Heart and vasculature are normal. No measurable pleural effusion and no pneumothorax. No acute bony abnormality seen. No acute aortic findings suspected. IMPRESSION: Limited shallow inspiration exam without acute cardiopulmonary finding.
[2019-01-31 16:16] VITALS: BP 164/119; O2SAT 97
--- NOTE | 2019-02-01 09:47 | EKG ---
Test Date: 2019-01-31 Test Time: 14:23:49 Design Center Consultant: WILLIAM MEASUREMENT RESULTS: Intervals: Rate: 117 WA: 174 QRSD: 104 QT: 328 QTc: 457 [place]: P: 37 WA: 174 QRS: -45 T: 137 INTERPRETIVE STATEMENTS: Sinus tachycardia Left axis deviation Left ventricular hypertrophy with repolarization abnormality Septal infarct, age undetermined Abnormal ECG Compared to ECG 01/31/2019 12:32:32 Left-axis deviation now present Left anterior fascicular block no longer present Myocardial infarct finding still present Electronically Signed On 02-01-19 09:47:05 CDT by Mango Murphy
--- NOTE | 2019-02-01 09:49 | EKG ---
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
--- NOTE | 2019-02-01 09:49 | EKG ---
Test Date: 2019-01-31 Test Time: 12:32:32 Networking Administrator: LA MEASUREMENT RESULTS: Intervals: Rate: 120 MD: 178 QRSD: 102 QT: 320 QTc: 452 [place]: P: 41 MD: 178 QRS: -48 T: 114 INTERPRETIVE STATEMENTS: Sinus tachycardia Left anterior fascicular block Left ventricular hypertrophy with repolarization abnormality Cannot rule out Septal infarct, age undetermined Abnormal ECG Compared to ECG 01/31/2019 12:31:16 Left anterior fascicular block now present Left-axis deviation no longer present Myocardial infarct finding still present Electronically Signed On 02-01-19 09:47:57 CDT by Mango Murphy
== END 2019-01-31 15:32 | disposition short-term general hospital (02) ==
LOC: ER 12:14
DX: I21.4 Non-ST elevation (NSTEMI) myocardial infarction (principal); I20.0 Unstable angina; I10 Essential (primary) hypertension
CPT/HCPCS: 96365; 92977; 93005 ×3; 85025; 80048; 36415; 83735; 85610; 80076; 84484; 83880; 71275; 71045; 96375; 99285; Q9967; J1644; J3101; J3010; J1650; J3475; J2405